=== PATIENT | female | born 1970 | race Caucasian/White ===

== ENCOUNTER 2016-12-27 16:48 | Emergency (ER) | payer BC ==
[~2016-12-27] VITALS: Ht 154.9 cm; Wt 129.4 kg
[~2016-12-27 16:48] MED LIST: ALBINS INH; ASPCH81X PO; DIPH25CA65 PO; FEXO1TAB49 PO; FLUT1INH7 PO; HYDC25 PO; LISI-725 PO; METF-384 PO; MONT1TAB3 PO; PRLSR20 PO
[2016-12-27 16:52] VITALS: TEMP 36.9; Ht 154.9 cm; Wt 129.4 kg
[2016-12-27] MEDS ORDERED: RANITIDINE HCL 50 MG/100 ML D5W IV STA (16:58)
[2016-12-27] MEDS ORDERED: DiphenhydrAMINE HCL 50 MG/ML VIAL IV STA (16:58)
[2016-12-27] MEDS ORDERED: METHYLPREDNISOLONE 125 MG VIAL IV STA (16:58)
[2016-12-27] MEDS ORDERED: SODIUM CHLORIDE 0.9% 1000ML 1,000 ML IV STA (16:58)
[2016-12-27] MEDS ORDERED: RACEPINEPHRINE 2.25% NEBU SOLN 0.5 ML VIAL INH STA (17:02)
--- NOTE | 2016-12-27 17:05 | EMERGENCY ROOM VISIT NOTE ---
History Report prepared by Portillo: Brandie Siegel Under the Supervision of: Dr. Paul Alcocer M.D. First contact with patient: 16:56 Chief Complaint: ALLERGIC REACTION Stated Complaint: STUNG BY YELLOW JACKET History of Present Illness The patient is a 46 year old female who presents to the Emergency Room with complaints of an allergic reaction that started prior to arrival. She reports she was stung on the back of her left arm by a yellow jacket at 1630 today. She rates her discomfort as a 5/10 in severity and states her breathing began to feel "tight" after being stung. Source of History: patient Onset: 1630 today Position: arm (left) Symptom Intensity: 5/10 Timing: other (persistent) Associated Symptoms: + SOB Review of Systems See HPI for pertinent positives & negatives. A total of 10 systems reviewed and were otherwise negative. Past Medical & Surgical Medical Problems: (1) Hypertension Family History Heart disease Hypertension Social History Smoking Status: Never Smoker Alcohol Use: none Drug Use: none Marital Status: Housing Status: lives with family Occupation Status: employed Current/Historical Medications Scheduled Albuterol 0.083% Soln (Ventolin 0.083% Soln *), 1 AMP INH Q4HR Aspirin (Aspirin Chewable), 81 MG PO DAILY Diphenhydramine Hcl (Benadryl Allergy), 1 CAP PO DIRECTED Epinephrine (Epipen), 0.3 MG IM UD Fexofenadine Hcl (Stephanie Allergy), 1 TAB PO DAILY Fluticasone Furoate-Vilanterol (Breo Ellipta 200-25 Mcg/INH), 1 PUFF PO DAILY Hydrochlorothiazide (Hctz *), 12.5 MG PO DAILY Lisinopril (Zestril), 20 MG PO DAILY Metformin Hcl (Glucophage), 1,000 MG PO DAILY Montelukast Sodium (Singulair), 10 MG PO HS Omeprazole (Prilosec), 20 MG PO DAILY Prednisone (Prednisone Tab), 0 PO DAILY Ranitidine Hcl (Zantac), 150 MG PO BID Allergies Coded Allergies: BEE STING (Verified Allergy, Unknown, 12/27/16) Physical Exam Vital Signs Date Time Temp Pulse Resp B/P (MAP) Pulse Ox O2 Delivery O2 Flow Rate FiO2 12/27/16 20:56 94 18 138/82 96 12/27/16 19:24 73 20 127/87 99 Room Air 12/27/16 19:17 80 18 95 Room Air 12/27/16 17:57 77 17 121/79 96 Room Air 12/27/16 17:38 76 12/27/16 17:17 95 Room Air 12/27/16 17:17 95 Room Air 12/27/16 16:52 36.9 90 20 190/99 96 Room Air Physical Exam GENERAL: Patient is a healthy-appearing well-nourished 46 year old female HEAD: Normocephalic atraumatic EYES: Ocular movements intact pupils equal and react to light OROPHARYNX mucous membranes are moist no exudates present no erythema or edema present NECK: Supple no nuchal rigidity CHEST: Good equal expansion LUNGS: Clear and equal to auscultation CARDIAC: Normal S1 and S2 ABDOMEN: Soft nontender no guarding BACK: No CVA tenderness SKIN: Hives present on the left arm and chest EXTREMITIES: No pain upon palpation normal muscle strength in all groups no clubbing cyanosis or edema NEURO: Patient is following commands is answering questions appropriately. Alert and oriented x3 Cranial Nerves 2-12 grossly intact Medical Decision & Procedures Medications Administered Medications (Trade) Dose Ordered Sig/Flynn Route Start Time Stop Time Status Last Admin Dose Admin Sodium Chloride 1,000 ml @ 999 mls/hr Q1H1M STAT IV 12/27/16 16:58 12/27/16 17:58 DC 12/27/16 17:09 999 MLS/HR Diphenhydramine HCl (Benadryl Inj) 50 mg NOW STAT IV 12/27/16 16:58 12/27/16 17:00 DC 12/27/16 17:10 50 MG Methylprednisolone Sodium Succinate (Solu-Medrol IV) 125 mg NOW STAT IV 12/27/16 16:58 12/27/16 17:00 DC 12/27/16 17:09 125 MG Ranitidine HCl (zANTac IV) 50 mg NOW STAT IV 12/27/16 16:58 12/27/16 17:00 DC 12/27/16 17:10 50 MG Racepinephrine (Raccemic Epinephrine 2.25% 0.5ML Neb) 0.5 ml NOW STAT INH 12/27/16 17:02 12/27/16 17:03 DC 12/27/16 17:10 0.5 ML Albuterol/ Ipratropium (Duoneb) 12 ml ONE STAT INH 12/27/16 18:51 12/27/16 18:52 DC 12/27/16 19:16 12 ML ED Course 1654: Past medical records reviewed. The patient was evaluated in room B5. A complete history and physical examination was performed. 1657: Zantac 50 mg IV, Solu-Medrol 125 mg IV, Benadryl 50 mg IV, NSS 1000 ml @ 999 mls/hr IV. 1701: Racepinephrine 0.5 ml INH. 1834: I reevaluated the patient. She is resting comfortably. 1850: DuoNeb 12 ml INH. 2020: I reevaluated the patient. She is feeling much better. I discussed her results and discharge instructions and she verbalized complete understanding and agreement. Medical Decision Prior records/ancillary studies reviewed. Triage Nursing notes reviewed. The patient's history was concerning for possible allergic reaction. Differential diagnosis: Etiologies such as allergic reaction, anaphylaxis, urticaria, Hammer-Juan syndrome, toxic epidermal necrolysis, erythema multiforme, cellulitis, as well as others were entertained. This is a 46-year-old female who presents emergency department after being stung by bee. The patient does not have any stridor or wheezing on examination however has hives throughout her body therefore an IV was established, the patient given normal saline bolus, Benadryl, Solu-Medrol, Zantac. She was also given an epi-breathing treatment. She was observed for a total of 4 hours in the emergency department. She was also given DuoNeb breathing treatments for her asthma. Repeat examination revealed much improvement the patient's symptoms. At this point the patient wished to be discharged home. I do believe that this is reasonable however I will write for EpiPen's for home as well as a prednisone taper. I recommended that the patient take Benadryl 50 mg every 6 hours and that she also takes Zantac. Patient was in agreement with the treatment plan. Medication Reconcilliation Current Medication List: was personally reviewed by me Blood Pressure Screening Patient's blood pressure: Normal blood pressure Blood pressure disposition: Did not require urgent referral Impression Primary Impression: Allergic reaction Scribe Attestation The scribe's documentation has been prepared under my direction and personally reviewed by me in its entirety. I confirm that the note above accurately reflects all work, treatment, procedures, and medical decision making performed by me. Departure Information Dispostion Home / Self-Care Prescriptions Epinephrine (EPIPEN) 0.3 Mg/0.3 Ml Inj 0.3 MG IM UD, #2 BOX Prov: Paul Alcocer MD 12/27/16 Ranitidine Hcl (ZANTAC) 150 Mg Tab 150 MG PO BID for 7 Days, #14 TAB Prov: Paul Alcocer MD 12/27/16 Prednisone (Prednisone Tab) 20 Mg Tab 0 PO DAILY, #7 TAB 2 TABS DAILY FOR 2 DAYS, THEN 1 TAB DAILY FOR 2 DAYS, THEN 1/2 TAB DAILY FOR 2 DAYS. Prov: Paul Alcocer MD 12/27/16 Referrals Chiara Vaca D.O. (PCP) Patient Instructions ED Allergic Reaction General Other, ED Allergic Reaction Local Other, First Aid Allergic React, My [facility] Additional Instructions Take 50 mg Benadryl every 6 hours Use inhaler twice every 6 hours You have been examined and treated today on an emergency basis only. This is not a substitute for, or an effort to provide, complete comprehensive medical care. It is impossible to recognize and treat all injuries or illnesses in a single emergency department visit. It is therefore important that you follow up closely with Dr Vaca. Call as soon as possible for an appointment. Thank you for your time and consideration. I look forward to speaking with you again soon. Please don't hesitate to call us if you have any questions. Problem Qualifiers Primary Impression: Allergic reaction Encounter type: initial encounter Qualified Codes: T78.40XA - Allergy, unspecified, initial encounter
[2016-12-27 17:17] VITALS: O2SAT 95
[2016-12-27] MEDS ORDERED: ALBUT/IPRATROP 3MG/0.5MG NEB 3 ML VIAL INH STA (18:51)
[2016-12-27 19:17] VITALS: PULSE 80; O2SAT 95
[2016-12-27] MEDS ORDERED: RANI150T3 PO (20:25)
[2016-12-27] MEDS ORDERED: PRED20TA2 PO (20:25)
[2016-12-27] MEDS ORDERED: EPP3/2 IM (20:28)
[2016-12-27 20:56] VITALS: BP 138/82; PULSE 94; O2SAT 96
[2016-12-28] MEDS ORDERED: ALBINS/ INH (15:42)
[2016-12-28] MEDS ORDERED: ASPI81TA28 PO (15:43)
[2016-12-28] MEDS ORDERED: DIPH25CA65 PO (15:44)
[2016-12-28] MEDS ORDERED: EPP3/2 IM (15:45)
[2016-12-28] MEDS ORDERED: HYDR12.55 PO (15:48)
[2016-12-28] MEDS ORDERED: ZNTT/150 PO (15:50)
== END 2016-12-27 21:08 | disposition home or self-care (01) ==
LOC: C.EDB 16:48
DX: T78.40XA Allergy, unspecified, initial encounter (principal); X58.XXXA Exposure to other specified factors, initial encounter; I10 Essential (primary) hypertension; J45.909 Unspecified asthma, uncomplicated; Z82.49 Family history of ischemic heart disease and other diseases of the circulatory system; Z79.82 Long term (current) use of aspirin; Z79.899 Other long term (current) drug therapy

== ENCOUNTER 2016-12-28 15:04 | Emergency (ER) | payer BC ==
[~2016-12-28] VITALS: Ht 154.9 cm; Wt 130.4 kg
[~2016-12-28 15:04] MED LIST changes: +EPP3/2 IM; +PRED20TA2 PO; +RANI150T3 PO
[2016-12-28 15:15] VITALS: TEMP 36.7; Ht 154.9 cm; Wt 130.4 kg
[2016-12-28] MEDS ORDERED: DiphenhydrAMINE HCL 50 MG/ML VIAL IV STA (15:37)
[2016-12-28] MEDS ORDERED: ALBUT/IPRATROP 3MG/0.5MG NEB 3 ML VIAL INH STA (15:37)
[2016-12-28] MEDS ORDERED: ALBINS/ INH (15:42)
[2016-12-28] MEDS ORDERED: ASPI81TA28 PO (15:43)
[2016-12-28] MEDS ORDERED: DIPH25CA65 PO (15:44)
[2016-12-28] MEDS ORDERED: EPP3/2 IM (15:45)
[2016-12-28] MEDS ORDERED: HYDR12.55 PO (15:48)
[2016-12-28] MEDS ORDERED: ZNTT/150 PO (15:50)
--- NOTE | 2016-12-28 16:20 | DIAGNOSTIC IMAGING REPORT ---
CHEST ONE VIEW PORTABLE CLINICAL HISTORY: Atypical chest pain COMPARISON STUDY: June 2007 FINDINGS: The cardiac and mediastinal contours are normal. There is no evidence of focal pulmonary consolidation. There is no evidence of failure. No pleural effusions are visualized.[ IMPRESSION: No active disease in the chest. Electronically signed by: Ruslan James M.D. 12/28/2016 4:19 PM Dictated Date/Time: 12/28/2016 4:18 PM
[2016-12-28 16:23] LABS: BASO ABS # 0.01 K/uL (0-0.2); COMPLETE YES; HEMATOCRIT 36.3 % (37-47); IG% 0.4 %; LYMPH % 4.6 %; MEAN CELL VOLUME 83.8 fL (80-100); MEAN CORPUSCULAR HGB CONC 32.2 g/dl (32-36); MONO % 5.6 %; NEUT % 89.4 %; PLATELET COUNT 350 K/uL (130-400); RED BLOOD COUNT 4.33 M/uL (4.2-5.4); WHITE BLOOD COUNT 21.78 K/uL (4.8-10.8)
[2016-12-28 16:52] LABS: BUN/CREATININE RATIO 10.9 (10-20); CALCIUM 9.6 mg/dl (8.5-10.1); POTASSIUM 4.3 mmol/L (3.5-5.1)
[2016-12-28 18:45] VITALS: BP 118/79; PULSE 88; O2SAT 97
--- NOTE | 2016-12-28 22:07 | EMERGENCY ROOM VISIT NOTE ---
History Report prepared by Portillo: Zander Lockwood Under the Supervision of: Dr. Hilario Jhaveri M.D. First contact with patient: 15:29 Chief Complaint: ALLERGIC REACTION Stated Complaint: HIVES, TROUBLE BREATHING, BEE STING History of Present Illness The patient is a 46 year old female who presents to the Emergency Room with complaints of a worsening allergic reaction beginning 24 hours ago. The patient states she was in the ED yesterday after being stung in the left arm by a yellow jacket. She reports she was given multiple medications and was discharged with prednisone. The patient notes she took her last dose of prednisone and Benadryl 7 hours ago. She states she is experiencing increased facial erythema, increased shortness of breath, throat tightness, and sweating. The patient reports her arms and legs are normal. She notes two hours ago, she experienced chest tightness that she believed was her asthma. The patient states she used her asthma medication, but it did not help. She denies fevers and vomiting. She reports she has a history of prior bee sting with allergy but not as bad as today. Source of History: patient Onset: 24 hours ago Position: other (global) Quality: other (Discharge) Timing: worsening Associated Symptoms: + chest pain (tightness similar to asthma exacerbations ), + SOB, No fevers, No vomiting Note: Associated symptoms: facial erythema and throat tightness Review of Systems See HPI for pertinent positives & negatives. A total of 10 systems reviewed and were otherwise negative. Past Medical & Surgical Medical Problems: (1) Asthma (2) Hypertension Family History Heart disease Hypertension Social History Smoking Status: Never Smoker Alcohol Use: none Drug Use: none Marital Status: Housing Status: lives with family Current/Historical Medications Scheduled Aspirin (Aspirin Ec), 81 MG PO DAILY Diphenhydramine Hcl (Benadryl Allergy), 25 MG PO Q6H Epinephrine (Epipen), 0.3 MG IM UD Fexofenadine Hcl (Stephanie Allergy), 180 MG PO DAILY Fluticasone Furoate-Vilanterol (Breo Ellipta 200-25 Mcg/INH), 1 PUFF PO DAILY Hydrochlorothiazide (Hydrochlorothiazide), 12.5 MG PO DAILY Lisinopril (Zestril), 20 MG PO DAILY Metformin Hcl (Glucophage), 1,000 MG PO DAILY Montelukast Sodium (Singulair), 10 MG PO HS Omeprazole (Prilosec), 20 MG PO DAILY Prednisone (Prednisone Tab), 0 PO DAILY Ranitidine (Zantac), 150 MG PO BID Scheduled PRN Albuterol Sulf (Proventil 0.083% 2.5MG/3ML), 2.5 MG INH Q4H PRN for SOB/Wheezing Allergies Coded Allergies: BEE STING (Verified Allergy, Unknown, 12/27/16) Physical Exam Vital Signs Date Time Temp Pulse Resp B/P (MAP) Pulse Ox O2 Delivery O2 Flow Rate FiO2 12/28/16 18:45 88 18 118/79 97 12/28/16 17:03 85 20 134/85 96 Room Air 12/28/16 16:33 87 12/28/16 16:06 Room Air 12/28/16 15:15 36.7 98 20 143/84 98 Room Air Physical Exam Constitutional: Vital signs reviewed. Eyes: Pupils are equal round reactive to light. Conjunctiva are noninjected. ENT: Pharynx is clear without erythema or exudate. Mucous membranes are moist. Neck supple without meningeal signs. Erythema and swelling to the face. No lip , tongue, or uvula swelling. Respiratory: Mild scattered wheezing, no stridor. Breath sounds are equal bilaterally. Cardiovascular: Regular rate and rhythm. No rubs or gallops. GI: Soft, nondistended and nontender. Bowel sounds are present. Musculoskeletal: No peripheral edema. No lower extremity tenderness. Left arm - no stinger present, mild erythema posteriorly. Integumentary: No cyanosis. No hives to the legs. Neurological: The patient is awake and alert. No focal deficits. Psychiatric: Normal affect. Medical Decision & Procedures ER Provider Diagnostic Interpretation: X-ray results as stated below per interpretation by me and the radiologist: CHEST ONE VIEW PORTABLE CLINICAL HISTORY: Atypical chest pain COMPARISON STUDY: June 2007 FINDINGS: The cardiac and mediastinal contours are normal. There is no evidence of focal pulmonary consolidation. There is no evidence of failure. No pleural effusions are visualized. IMPRESSION: No active disease in the chest. Electronically signed by: Ruslan James M.D. 12/28/2016 4:19 PM Dictated Date/Time: 12/28/2016 4:18 PM Laboratory Results 12/28/16 16:00 Red Blood Count 4.33, Mean Corpuscular Volume 83.8, Mean Corpuscular Hemoglobin 27.0, Mean Corpuscular Hemoglobin Concent 32.2, Mean Platelet Volume 11.0, Neutrophils (%) (Auto) 89.4, Lymphocytes (%) (Auto) 4.6, Monocytes (%) (Auto) 5.6, Eosinophils (%) (Auto) 0.0, Basophils (%) (Auto) 0.0, Neutrophils # (Auto) 19.48, Lymphocytes # (Auto) 1.00, Monocytes # (Auto) 1.21, Eosinophils # (Auto) 0.00, Basophils # (Auto) 0.01 12/28/16 16:00 Test 12/28/16 16:00 12/28/16 16:17 White Blood Count 21.78 K/uL (4.8-10.8) Red Blood Count 4.33 M/uL (4.2-5.4) Hemoglobin 11.7 g/dL (12.0-16.0) Hematocrit 36.3 % (37-47) Mean Corpuscular Volume 83.8 fL (80-100) Mean Corpuscular Hemoglobin 27.0 pg (25-34) Mean Corpuscular Hemoglobin Concent 32.2 g/dl (32-36) Platelet Count 350 K/uL (130-400) Mean Platelet Volume 11.0 fL (7.4-10.4) Neutrophils (%) (Auto) 89.4 % Lymphocytes (%) (Auto) 4.6 % Monocytes (%) (Auto) 5.6 % Eosinophils (%) (Auto) 0.0 % Basophils (%) (Auto) 0.0 % Neutrophils # (Auto) 19.48 K/uL (1.4-6.5) Lymphocytes # (Auto) 1.00 K/uL (1.2-3.4) Monocytes # (Auto) 1.21 K/uL (0.11-0.59) Eosinophils # (Auto) 0.00 K/uL (0-0.5) Basophils # (Auto) 0.01 K/uL (0-0.2) RDW Standard Deviation 43.8 fL (36.4-46.3) RDW Coefficient of Variation 14.3 % (11.5-14.5) Immature Granulocyte % (Auto) 0.4 % Immature Granulocyte # (Auto) 0.08 K/uL (0.00-0.02) Anion Gap 8.0 mmol/L (3-11) Est Creatinine Clear Calc Drug Dose 87.8 ml/min Estimated GFR () 77.2 Estimated GFR (Non- 66.6 BUN/Creatinine Ratio 10.9 (10-20) Calcium Level 9.6 mg/dl (8.5-10.1) Bedside Troponin I < 0.030 ng/ml (0-0.045) Laboratory results as reviewed by me. Medications Administered Medications (Trade) Dose Ordered Sig/Flynn Route Start Time Stop Time Status Last Admin Dose Admin Albuterol/ Ipratropium (Duoneb) 3 ml NOW STAT INH 12/28/16 15:37 12/28/16 15:51 DC 12/28/16 16:18 3 ML Diphenhydramine HCl (Benadryl Inj) 50 mg NOW STAT IV 12/28/16 15:37 12/28/16 15:51 DC 12/28/16 16:18 50 MG ECG Indication: other (chest tightness) Rate (beats per minute): 86 Rhythm: normal sinus Findings: no acute ischemic change, no ectopy ED Course 153: The patient was evaluated in room C07. A complete history and physical exam was performed. 153: Ordered Diphenhydramine HCl 50mg IV, Duoneb 3ml INH 1651: I reevaluated the patient. There is no wheezing on exam, and she denies current chest pressure. She is feeling better and only has the sensation of secretions in her throat. There is no swelling. 1814: Upon reevaluation, the patient appeared to have improvement of her symptoms. I discussed tonight's findings with her. She verbalized agreement of the treatment plan. The patient was discharged home. Medical Decision This is a 46-year-old female who presents with an allergic reaction. I did perform a limited focused review of portions of the patient's old chart on the electronic medical record. The patient was here yesterday for an allergic reaction from a yellow jacket. She was discharged with an epinephrine pen, Zantac, and prednisone. She was given Solu-Medrol, racemic epinephrine, and a duoneb. I did evaluate the patient as noted above. The patient presented yesterday with an acute allergic reaction. She is having rebound symptoms today. She also noted some chest discomfort which she describes as a tightness and similar to prior asthma exacerbation. She does have some wheezing on exam which I felt is likely triggered by this acute allergic reaction. IV access was established. The patient was placed on a continuous hospital monitor. I did treat her with a DuoNeb as well as 50 mg of Benadryl IV. I did order and personally review the patient's 12-lead EKG and chest x-ray as described above. Her twelve-lead EKG does not show any evidence of acute ischemia. A chest x- ray is unremarkable. I did order and review the patient's blood work as noted in the electronic medical record. White blood cell count is elevated but she was given Solu-Medrol yesterday and took prednisone today. She has had no fevers. There is no sign of infection at this time. I did reassess the patient several times. She had progressive improvement of her symptoms. She has no wheezing on reexamination and her chest tightness is resolved. The patient was advised to continue her prednisone and antihistamines as directed. She was advised follow with her doctor. She was discharged in good condition. Medication Reconcilliation Current Medication List: was personally reviewed by me Blood Pressure Screening Patient's blood pressure: Elevated blood pressure Blood pressure disposition: Referred to PCP Impression Primary Impression: Allergic reaction Additional Impression: Asthma exacerbation Scribe Attestation The scribe's documentation has been prepared under my direct and personally reviewed by me in its entirety. I confirm that the note above accurately reflects all work, treatment, procedures, and medical decision making performed by me. Departure Information Dispostion Home / Self-Care Referrals Chiara Vaca D.O. (PCP) Forms HOME CARE DOCUMENTATION FORM, IMPORTANT VISIT INFORMATION Patient Instructions Asthma - [facility], ED Allergic Reaction General Other, My [facility] Additional Instructions You have been examined and treated today on an emergency basis only. This is not a substitute for, or an effort to provide, complete comprehensive medical care. It is impossible to recognize and treat all injuries or illnesses in a single emergency department visit. It is therefore important that you follow up closely with your physician. Call as soon as possible for an appointment. Return for worsening symptoms or if you develop swelling to your throat or tongue or any other concerning symptoms. Problem Qualifiers Primary Impression: Allergic reaction Encounter type: initial encounter Qualified Codes: T78.40XA - Allergy, unspecified, initial encounter
== END 2016-12-28 18:46 | disposition home or self-care (01) ==
LOC: C.EDB 15:05 → C.EDC 18:46
DX: S40.862A Insect bite (nonvenomous) of left upper arm, initial encounter (principal); W57.XXXA Bitten or stung by nonvenomous insect and other nonvenomous arthropods, initial encounter; T63.441A Toxic effect of venom of bees, accidental (unintentional), initial encounter; J45.901 Unspecified asthma with (acute) exacerbation; I10 Essential (primary) hypertension; Z79.82 Long term (current) use of aspirin; Z79.84 Long term (current) use of oral hypoglycemic drugs

== ENCOUNTER 2019-07-10 07:58 | Observation (INO) ==
--- OUTSIDE RECORDS SUMMARY | 2019-07-10 08:02 | External Medical Summary | Continuity of Care Document ---
:1970 Author Name Glenn Hansen, Provider Address Unavailable Unavailable , Care Team Providers Name Role Phone Breanne Dickey PA-C Unavailable [email or web address] Cable DO Unavailable [email or web address], UNKNOWN Unavailable Unavailable Unavailable Unavailable Unavailable Problems Asthma (493.90) (J45.909) Allergies and Adverse Reactions No Known Drug Allergies (Allergy) Bee sting (Allergy) Medications Albuterol Sulfate (2.5 MG/3ML) 0.083% In halation Nebulization Solution; USE 1 UNIT DOSE IN NEBULIZER EVERY 4 HOURS NEEDED. KEZIA Dickey 3 ML P las Cont (60 Plas Quantity: 60 Conts) Refills: 5 Nebulizer/Tubing/Mouthpiece KIT; USE DIRECTED. KEZIA Andino Start: 28-Sep-2010 Quantity: 1 A. 1 EA Package Refills: 0 Procedures Procedures not documented Immunizations Immunizations not documented Plan of Treatment Planned Observations Planned Goals not documented Results No Known Results Results not documented
[2019-07-10] MEDS ORDERED: NITROGLYCERIN SL 0.4 MG/TAB TAB SL STA (08:18)
[2019-07-10 08:25] LABS: Basophils # (auto) 0.02 K/uL (0-0.2); Basophils % (auto) 0.2 %; Eosinophils # (auto) 0.19 K/uL (0-0.5); Eosinophils % (auto) 1.9 %; Hematocrit (blood only) 38.4 % (37-47); Hemoglobin 12.3 g/dL (12.0-16.0); Immature Granulocytes # (auto) 0.03 K/uL (0.00-0.02); Immature Granulocytes % (auto) 0.3 %; Lymphocytes # (auto) 1.79 K/uL (1.2-3.4); Lymphocytes % (auto) 17.5 %; Mean Corpuscular Volume 84.4 fL (80-100); Mean Platelet Volume 11.5 fL (7.4-10.4); Monocytes # (auto) 0.73 K/uL (0.11-0.59); Monocytes % (auto) 7.1 %; Neutrophils # (auto) 7.47 K/uL (1.4-6.5); Platelet Count 327 K/uL (130-400); RDW Coefficient of Variation 14.4 % (11.5-14.5); RDW Standard Deviation 43.9 fL (36.4-46.3); Red Blood Count 4.55 M/uL (4.2-5.4); White Blood Count 10.23 K/uL (4.8-10.8)
--- NOTE | 2019-07-10 08:26 | Emergency Department Note ---
History of Present Illness General Chief Complaint: Chest Pain Source: patient Mode of arrival: ambulatory Limitations: no limitations History of Present Illness Provider Complaint: chest pain Onset (ago): hour(s) 5 Time: 03:30 Duration: constant and progressively worsening Onset: during rest and awoke with symptoms Pain Location: left chest Pain Radiation: back Severity: moderate Maximum Pain Intensity: 5 Current Pain Intensity: 5 Quality: + tightness Relieved By: + nothing Exacerbated By: + exertion Treatments prior to arrival: aspirin and nitroglycerin This 49-year-old female patient presents emergency department today via ambulance with complaints of left chest pain. The patient states the pain begins in her left armpit and radiates around to her chest and back to her back. She states the pain began last evening and was very minimal at first, around 8pm. She woke at 330 with back pain, fell back to sleep for an hour, then awoke at 430 with significantly worsening pain in the left armpit radiating into the chest. Walking and movement makes the pain worse. She states her breathing feels heavy and short. She denies any history of similar pain. She denies any recent illness or injury. She denies any abdominal pain, nausea, vomiting, fever, numbness, tingling, weakness, cough, or other associated symptoms. Patient rates her pain a 5/10. She had aspirin and nitroglycerin while in route to the ED without relief. Home Medications Home Medications Medication Instructions Recorded Confirmed Type albuterol sulfate 2.5 mg INHALATION QID PRN 07/10/19 07/10/19 History albuterol sulfate [Proventil HFA] 1 inh INHALATION QID PRN 07/10/19 07/10/19 History aspirin 81 mg PO DAILY 07/10/19 07/10/19 History famotidine [Pepcid] 20 mg PO HS 07/10/19 07/10/19 History fexofenadine 180 mg PO DAILY 07/10/19 07/10/19 History hydrochlorothiazide 12.5 mg PO DAILY 07/10/19 07/10/19 History lisinopril 20 mg PO DAILY 07/10/19 07/10/19 History metformin 500 mg PO BID 07/10/19 07/10/19 History montelukast 10 mg PO DAILY 07/10/19 07/10/19 History omalizumab [Xolair] 150 mg SUBCUT UD 07/10/19 07/10/19 History omeprazole 40 mg PO DAILY 07/10/19 07/10/19 History Allergies Allergy/AdvReac Type Severity Reaction Status Date / Time bee venom protein (honey bee) Allergy Unknown Verified 07/10/19 08:34 Past Med/Surg History Medical History Asthma (Chronic) GERD (gastroesophageal reflux disease) Hypertension (Chronic) Surgical History (Updated 07/10/19 @ 10:36 by Valerie Avalos PA-C) History of surgery on wrist Family History (Updated 07/10/19 @ 10:37 by Valerie Avalos PA-C) Father Myocardial infarction age 40s-50 multiple stents Coronary heart disease ETOH abuse Mother Myocardial infarction, Onset Age: 70 Kidney disease on HD Pulmonary embolism Stroke Social History Preferred Language: Irish Communication Ability: Effective 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 Beliefs That Will Affect Care: None Current Living Situation: Spouse Other Information That Helps Us Care for You: No Feels Safe at Home: Yes Safety Concerns: Feels Safe At This Time Smoking Status: Never smoker Do You Dip or Chew Tobacco: No ; Second Hand Exposure: No ; Tobacco Cessation Education Requested by Patient: No Hx Alcohol Use: No Hx Substance Use: No Review of Systems A total of 10 systems reviewed and were otherwise negative Physical Exam Vital Signs Vital Signs - 24 hr 07/10/19 08:03 07/10/19 08:05 07/10/19 08:20 Temperature 36.7 C Temperature Source Oral Pulse Rate 86 93 H Pulse Rate from SpO2 Sensor 93 H Pulse Rhythm Regular Pulse Strength Normal Respiratory Rate 19 19 Respiratory Effort / Characteristics Non-Labored Spontaneous Respiratory Depth Normal Blood Pressure 133/78 133/78 Blood Pressure Mean 96 82 Blood Pressure Position Lying Pulse Oximetry 97 96 95 Oxygen Delivery Method Room Air Room Air Sepsis Recent Fever Within 48 Hours No Sepsis New/Unexplained Change in Mental Status No Sepsis Action Taken by Nursing No Action Required 07/10/19 08:24 07/10/19 08:30 07/10/19 09:00 Temperature Temperature Source Pulse Rate 87 95 H 80 Pulse Rate from SpO2 Sensor 88 94 H 80 Pulse Rhythm Pulse Strength Respiratory Rate 19 23 18 Respiratory Effort / Characteristics Respiratory Depth Blood Pressure 127/97 116/68 115/69 Blood Pressure Mean 105 88 84 Blood Pressure Position Pulse Oximetry 97 95 96 Oxygen Delivery Method Sepsis Recent Fever Within 48 Hours Sepsis New/Unexplained Change in Mental Status Sepsis Action Taken by Nursing 07/10/19 09:31 07/10/19 10:01 Temperature Temperature Source Pulse Rate 86 92 H Pulse Rate from SpO2 Sensor 84 94 H Pulse Rhythm Pulse Strength Respiratory Rate 16 22 Respiratory Effort / Characteristics Respiratory Depth Blood Pressure 132/84 136/98 Blood Pressure Mean 120 115 Blood Pressure Position Pulse Oximetry 97 98 Oxygen Delivery Method Sepsis Recent Fever Within 48 Hours Sepsis New/Unexplained Change in Mental Status Sepsis Action Taken by Nursing VITALS: Vitals are noted on the nurse's note and reviewed by myself. Vital signs stable. GENERAL: This is a 49-year-old obese white female, in no acute distress, nondiaphoretic, well-developed well-nourished. SKIN: The skin was without rashes, erythema, edema, or bruising. There is no tenting of the skin. Capillary refill less than 2 seconds. HEAD: Normocephalic atraumatic. EARS: External auditory canals clear, tympanic membranes pearly crow without erythema or effusion bilaterally NECK: Supple without nuchal rigidity. No lymphadenopathy. No thyromegaly. Cervical spine is nontender. No JVD. HEART: Regular rate and rhythm without murmurs gallops or rubs. LUNGS: Clear to auscultation bilaterally without wheezes, rales or rhonchi. No retractions or accessory muscle use. ABDOMEN: Positive bowel sounds x 4. Soft, nontender, without masses or organomegaly. Petty sign negative. No guarding or rebound tenderness. MUSCULOSKELETAL: No muscle atrophy, erythema, or edema noted. Full range of motion without joint tenderness in all extremities. No tenderness to palpation. Strength 5/5 throughout. NEURO: Patient was alert and oriented to person place and time. No focal neurological deficits. Course Course The patient was seen and evaluated as above. Pt. placed on continuous director food and beverage which showed a normal sinus rhythm at a rate of 86. I discussed case with my attending physician. IV access obtained, labs drawn. Patient medicated with IV fluids and sublingual nitroglycerin. Imaging performed and reviewed by myself and radiologist as noted. Labs reviewed by myself. I discussed the findings with the patient at bedside. I discussed the case with Valerie Avalos PA-C with [facility]. She did agree to see and evlaluate the patient for admission. Please see hospitalist dictation regarding ongoing management and care of this patient. Administered Medications Discontinued Medications Sodium Chloride (Nss 1000ml) 1,000 mls @ 999 mls/hr IV .[id number] SEAN Stop: 07/10/19 09:30 Last Infusion: 07/10/19 09:26 Dose: 0 mls/hr Documented by: [id number] Admin: 07/10/19 08:25 Dose: 999 mls/hr Documented by: [id number] Nitroglycerin (Nitrostat) 0.4 mg SL NOW STA Stop: 07/10/19 08:19 Last Admin: 07/10/19 08:23 Dose: 0.4 mg Documented by: [id number] Medical Decision Making Differential Diagnosis + fracture of rib, + pneumothorax, + stable angina, + unstable angina pectoris, + atypical chest pain, + st elevation myocardial infarction, + costochondritis, + chest pain, + biliary colic, + cardiac ischemia, + myocarditis, + pericarditis, + costochondritis, + pleurisy, + aortic dissection, + pulmonary embolism, + pneumonia, + musculoskeletal, + infections, + cholecystitis, + pancreatitis and + esophageal rupture Medical Records Attestation: I reviewed the patient's medical records. Home Medications Current Medication List: was personally reviewed by me Laboratory Data Attestation: I reviewed the patient's lab results. Lab results narrative: No leukocytosis, anemia, thrombocytopenia. Renal, hepatic function, and electrolytes without significant abnormality. Troponin negative. Coags normal. lipase 159 Result diagrams: 07/10/19 07:30 07/10/19 07:30 Labs: Lab Results 07/10/19 07/10/19 07/10/19 Range/Units 07:30 07:30 07:30 WBC 10.23 (4.8-10.8) K/uL RBC 4.55 (4.2-5.4) M/uL Hgb 12.3 (12.0-16.0) g/dL Hct 38.4 (37-47) % MCV 84.4 (80-100) fL MCH 27.0 (25-34) pg MCHC 32.0 (32-36) g/dL RDW Std Deviation 43.9 (36.4-46.3) fL RDW Coeff of Nay 14.4 (11.5-14.5) % Plt Count 327 (130-400) K/uL MPV 11.5 H (7.4-10.4) fL Immature Gran % (Auto) 0.3 % Neut % (Auto) 73.0 % Lymph % (Auto) 17.5 % Dougherty % (Auto) 7.1 % Eos % (Auto) 1.9 % Baso % (Auto) 0.2 % Immature Gran # (Auto) 0.03 H (0.00-0.02) K/uL Neut # (Auto) 7.47 H (1.4-6.5) K/uL Lymph # (Auto) 1.79 (1.2-3.4) K/uL Dougherty # (Auto) 0.73 H (0.11-0.59) K/uL Eos # (Auto) 0.19 (0-0.5) K/uL Baso # (Auto) 0.02 (0-0.2) K/uL PT 10.3 (9.0-12.0) Seconds INR 1.0 (0.9-1.1) APTT 24.4 (21.0-31.0) Seconds PTT Ratio 0.9 D-Dimer (0-500) ug/L FEU Sodium 137 (136-145) mmol/L Potassium 4.2 (3.5-5.1) mmol/L Chloride 103 (98-107) mmol/L Carbon Dioxide 29 (21-32) mmol/L Anion Gap 5.0 (3-11) BUN 11 (7-18) mg/dl Creatinine 0.73 (0.6-1.2) mg/dl Est Cr Clr Drug Dosing 118.3 ml/min Est GFR ( Amer) 110.5 Est GFR (Non-Af Amer) 95.4 BUN/Creatinine Ratio 15.7 (10-20) Glucose 110 H (70-99) mg/dl Calcium 9.7 (8.5-10.1) mg/dl Total Bilirubin 0.2 (0.2-1) mg/dl AST 8 L (15-37) U/L ALT 20 (12-78) U/L Alkaline Phosphatase 86 (45-117) U/L Troponin I < 0.015 (0-0.045) ng/ml Total Protein 7.8 (6.4-8.2) gm/dl Albumin 3.2 L (3.4-5.0) gm/dl Globulin 4.6 H (2.5-4.0) gm/dl Albumin/Globulin Ratio 0.7 L (0.9-2) Lipase 159 (73-393) U/L 07/10/19 Range/Units 07:30 WBC (4.8-10.8) K/uL RBC (4.2-5.4) M/uL Hgb (12.0-16.0) g/dL Hct (37-47) % MCV (80-100) fL MCH (25-34) pg MCHC (32-36) g/dL RDW Std Deviation (36.4-46.3) fL RDW Coeff of Nay (11.5-14.5) % Plt Count (130-400) K/uL MPV (7.4-10.4) fL Immature Gran % (Auto) % Neut % (Auto) % Lymph % (Auto) % Dougherty % (Auto) % Eos % (Auto) % Baso % (Auto) % Immature Gran # (Auto) (0.00-0.02) K/uL Neut # (Auto) (1.4-6.5) K/uL Lymph # (Auto) (1.2-3.4) K/uL Dougherty # (Auto) (0.11-0.59) K/uL Eos # (Auto) (0-0.5) K/uL Baso # (Auto) (0-0.2) K/uL PT (9.0-12.0) Seconds INR (0.9-1.1) APTT (21.0-31.0) Seconds PTT Ratio D-Dimer 360 (0-500) ug/L FEU Sodium (136-145) mmol/L Potassium (3.5-5.1) mmol/L Chloride (98-107) mmol/L Carbon Dioxide (21-32) mmol/L Anion Gap (3-11) BUN (7-18) mg/dl Creatinine (0.6-1.2) mg/dl Est Cr Clr Drug Dosing ml/min Est GFR ( Amer) Est GFR (Non-Af Amer) BUN/Creatinine Ratio (10-20) Glucose (70-99) mg/dl Calcium (8.5-10.1) mg/dl Total Bilirubin (0.2-1) mg/dl AST (15-37) U/L ALT (12-78) U/L Alkaline Phosphatase (45-117) U/L Troponin I (0-0.045) ng/ml Total Protein (6.4-8.2) gm/dl Albumin (3.4-5.0) gm/dl Globulin (2.5-4.0) gm/dl Albumin/Globulin Ratio (0.9-2) Lipase (73-393) U/L Imaging Data Chest x-ray: Radiologist's impression: XR chest 1V portable CLINICAL HISTORY: Atypical chest pain COMPARISON STUDY: 08/27/2016 FINDINGS: The cardiac and mediastinal contours are normal. There is no evidence of focal pulmonary consolidation. There is no evidence of failure. No pleural effusions are visualized.[No pneumothorax is visualized. There is a 7 mm left apical nodule versus summation. IMPRESSION: 1. 7 mm left apical nodule versus summation 2. No evidence of failure. No evidence of focal pulmonary consolidation ACT 112: Negative or not required by law. Electronically signed by: Ruslan James M.D. 07/10/2019 8:52 AM ECG Data Indication: chest pain Rate (beats per minute): 89 Rhythm: normal sinus Findings: no ST depression, no T-wave inversion, no ST elevation, no acute ischemic change and no ectopy Comparison ECG Date: from (12/29/2016) Change: no significant change Blood Pressure Blood Pressure Findings: Elevated blood pressure Blood Pressure Disposition: elevated BP felt to be situational MDM Narrative This 49-year-old female patient presents emergency department today for za luation of chest pain. Pain began last evening. Heart score is 4. Initial labs unrevealing with negative Troponin. EKG without acute ischemic changes. Pt's pain did not respond to Nitro. She was given 324 ASA and 1 dose of Nitro [employer] with second dose of Nitro upon arrival. She was offered morphine when the nitro did not relieve her pain and declined. Pt. was not tachycardic, hypoxic, or tachypnic. Chest X-ray with 7mm left apical nodule vs. summation. Given her history and risk factors, pt. will be admitted to the hospitalist service for further evaluation and management of her symptoms. Please see hospitalist dictation regarding ongoing management and care. The chart was completed utilizing [employer] voice recognition software. Grammatical errors, random word insertions, pronoun errors, and incomplete sentences are an occasional consequence of this system due to software limitatio ns, ambient noise, and hardware issues. Any formal questions or concerns about the content, text, or information contained within the body of this dictation should be directly addressed to the provider for clarification. Impression & Plan Chest pain, Asthma, Hypertension Discharge Plan Visit Data Chief Complaint: Chest Pain ED Provider: Carlie Wolff ED Midlevel Provider: Anai Corona Discharge Problem: Chest pain, Asthma, Hypertension Patient Disposition: Admitted As Inpatient Condition: Good Discharge Instructions Interventions: ED Discharge Assessment Last Done: 07/10/19 10:29
[2019-07-10] MEDS ORDERED: SODIUM CHLORIDE 0.9% 1000ML 1,000 ML IV SCH (08:30)
[2019-07-10 08:33] LABS: Alanine Aminotransferase 20 U/L (12-78); Albumin Level 3.2 gm/dl (3.4-5.0); Aspartate Aminotransferase 8 U/L (15-37); BUN Creatinine Ratio 15.7 (10-20); Blood Urea Nitrogen 11 mg/dl (7-18); Calcium 9.7 mg/dl (8.5-10.1); Carbon Dioxide 29 mmol/L (21-32); Chloride 103 mmol/L (98-107); Creatinine Clr Calc Pharmacy 118.3 ml/min; Est GFR (African American) 110.5; Est GFR (Non-African American) 95.4; Glucose 110 mg/dl (70-99); Lipase 159 U/L (73-393); Potassium 4.2 mmol/L (3.5-5.1); Sodium 137 mmol/L (136-145)
[2019-07-10 08:38] LABS: Albumin Globulin Ratio 0.7 (0.9-2); Alkaline Phosphatase 86 U/L (45-117); Bilirubin,Total 0.2 mg/dl (0.2-1); Globulin 4.6 gm/dl (2.5-4.0); Total Protein 7.8 gm/dl (6.4-8.2); Troponin I < 0.015 ng/ml (0-0.045)
--- NOTE | 2019-07-10 08:53 | XRay Report ---
XR chest 1V portable CLINICAL HISTORY: Atypical chest pain COMPARISON STUDY: 08/27/2016 FINDINGS: The cardiac and mediastinal contours are normal. There is no evidence of focal pulmonary co nsolidation. There is no evidence of failure. No pleural effusions are visualized.[No pneumothorax is visualized. There is a 7 mm left apical nodule versus summation. IMPRESSION: 1. 7 mm left apical nodule versus summation 2. No evidence of failure. No evidence of focal pulmonary consolidation ACT 112: Negative or not required by law. Electronically signed by: Ruslan James M.D. 07/10/2019 8:52 AM
[2019-07-10 08:56] LABS: Partial Thromboplastin Ratio 0.9; Partial Thromboplastin Time 24.4 Seconds (21.0-31.0); Prothrombin Time 10.3 Seconds (9.0-12.0)
[2019-07-10] MEDS ORDERED: KETOROLAC 30 MG/ML VIAL IV ONE (10:30)
[2019-07-10] MEDS ORDERED: ALBUTEROL 0.083% NEBU SOLN 3 ML VIAL NEB STA (10:31)
[2019-07-10 10:32] LABS: D Dimer 360 ug/L FEU (0-500)
--- NOTE | 2019-07-10 10:36 | History & Physical Report ---
Date of Service July 10, 2019 Assessment & Plan (1) Chest pain: This is a 49-year-old female who has significant past medical history of HTN, diabetes mellitus, asthma, GERD, allergic rhinitis, morbid obesity, NIRMALA on 2 L at bedtime who presents to ED secondary to left-sided chest pain times several hours. In ED patient remained hemodynamically stable. Her lab work was generally unremarkable including CBC, CMP, troponin, lipase. D-dimer was ordered which was also negative. Chest x-ray revealed 7 mm TONIO apical nodule for summation. She received nitro 0.4 mg x 1 without relief. Pt with risk factors including HTN, T2DM, NIRMALA, Obesity, +FH in Father who had CAD with stents in his 40s/50s. CP is not reproducible but worse with inspiration sx likely attributed to costochondritis, MSK, pleurisy but given above must rule out ACS admit to PCU cycle trop x 3 repeat EKG obtain echocardiogram (had normal nuc stress test 08/2018) toradol 30mg x 1 now and q6h prn pain if cardiac work up negative likely okay to discharge tomorrow on anti inflammatories (2) T2DM (type 2 diabetes mellitus): last a1c 6.6 on 05/11/19 hold metformin insulin sliding scale (3) Hypertension: controlled on HCTZ and lisinopril (4) Abnormal CXR: CXR reveals 7mm TONIO apical nodule vs summation last Chest CT reviewed in 09/2015 revealed a 5mm left lower lobe nodule would recommend routine CT as outpt (5) GERD (gastroesophageal reflux disease): continue PPI/H2 sajan sx do not sound GI in origin does follow with [facility] recently had NM GES negative; had HIDA in 2018 which was WNL as well (6) NIRMALA (obstructive sleep apnea): continue 2L at HS (7) Asthma: no acute exacerbation continue prn albuterol she receives SQ inj with xolair q 2 weeks (8) Morbidly obese: encourage lifestyle modifications BMI 55.7 (9) DVT prophylaxis: SQ Heparin Disposition: admit to tele Follow up: PCP Dr. Medrano upon discharge Pt was seen and examined in collaboration with Dr. Mitchell, please see addendum History of Present Illness Chief Complaint: Left-sided chest pain times several hours. Primary Care Provider: Chiara Medrano, This is a 49-year-old female who has significant past medical history of HTN, diabetes mellitus, asthma, GERD, allergic rhinitis, morbid obesity, NIRMALA on 2 L at bedtime who presents to ED secondary to left-sided chest pain times several hours. She elicits that initially she developed substernal chest pain around 8 PM last evening which feels similar to her GERD. Symptoms resolved on their own. She was abruptly woken at approximately 3-3 30 this morning with left- sided upper back pain that radiated around to left axilla and left chest wall. Pain was constant, made worse with movement and deep inspiration but improved whenever she rolled on her side. She was able to fall back asleep when she woke up at approximately 5 AM with again severe pain. She got up and slept in recliner and was unable to get comfortable and therefore called EMS. She has never had any pain similar to this in the past. She describes pain as constant, "squeezing like a muscle spasm," 5/10, made worse with position and deep inspiration, improved with rest and shallow inspiration. In route she got ASA 324 and nitro x2 with no relief. She complained of associated shortness of breath and wheezing. She did use her nebulizer x2 yesterday secondary to wheezing. She complains of rhinorrhea, postnasal drip, cough for seen in the morning to clear postnasal drip then this resolves. She denies any recent URI or L RTI, fever, chills, sweats, lightheadedness, dizziness, syncope, palpitations, hemoptysis, nausea, vomiting, abdominal pain, change in bowel or urinary habits. She denies any recent travel, but has been more sedentary secondary to current pandemic. She denies any exposure to known COVID-19 contacts and has been taking proper precautions. Appetite has been normal. In ED patient remained hemodynamically stable. Her lab work was generally unremarkable including CBC, CMP, troponin, lipase. D-dimer was ordered which was also negative. Chest x-ray revealed 7 mm TONIO apical nodule for summation. She received nitro 0.4 mg x 1 without relief. Allergies Allergy/AdvReac Type Severity Reaction Status Date / Time bee venom protein (honey bee) Allergy Unknown Verified 07/10/19 08:34 Home Medications Home Medications Medication Instructions Recorded Confirmed Type albuterol sulfate 2.5 mg INHALATION QID PRN 07/10/19 07/10/19 History albuterol sulfate [Proventil HFA] 1 inh INHALATION QID PRN 07/10/19 07/10/19 History aspirin 81 mg PO DAILY 07/10/19 07/10/19 History famotidine [Pepcid] 20 mg PO HS 07/10/19 07/10/19 History fexofenadine 180 mg PO DAILY 07/10/19 07/10/19 History hydrochlorothiazide 12.5 mg PO DAILY 07/10/19 07/10/19 History lisinopril 20 mg PO DAILY 07/10/19 07/10/19 History metformin 500 mg PO BID 07/10/19 07/10/19 History montelukast 10 mg PO DAILY 07/10/19 07/10/19 History omalizumab [Xolair] 150 mg SUBCUT UD 07/10/19 07/10/19 History omeprazole 40 mg PO DAILY 07/10/19 07/10/19 History Past Med/Surg History Medical History Asthma (Chronic) GERD (gastroesophageal reflux disease) Hypertension (Chronic) Morbidly obese NIRMALA (obstructive sleep apnea) T2DM (type 2 diabetes mellitus) Surgical History (Updated 07/10/19 @ 10:36 by Valerie Avalos PA-C) History of surgery on wrist Family History Father Myocardial infarction age 40s-50 multiple stents Coronary heart disease ETOH abuse Mother Myocardial infarction, Onset Age: 70 Kidney disease on HD Pulmonary embolism Stroke Social History Preferred Language: [place] Communication Ability: Effective Charging Manipulator Required: No Beliefs That Will Affect Care: None Current Living Situation: Spouse Other Information That Helps Us Care for You: No Feels Safe at Home: Yes Safety Concerns: Feels Safe At This Time Smoking Status: Never smoker Do You Dip or Chew Tobacco: No ; Second Hand Exposure: No ; Tobacco Cessation Education Requested by Patient: No Hx Alcohol Use: No Hx Substance Use: No Review of Systems Review of Systems: All systems reviewed & are unremarkable except as noted in HPI & below Physical Exam Physical Exam: Constitutional: WD/WN, F, morbidly obese, vitals as above, NAD, sitting up in bed, pleasant, dyspneic with conversation Head: Normocephalic, Atraumatic Eyes: PERRL, conjunctivae normal, anicteric sclerae ENMT: external ear and nose normal, oropharynx normal Neck: trachea midline, no thyromegaly normal visual inspection Respiratory: normal respiratory effort, + pain with deep inspiration, lungs clear to auscultation, no wheeze, rales, rhonchi. Normal insp/exp effort, no accessory muscle use Cardiovascular: RRR, no murmur, no edema Vessels: no JVD or carotid bruit Chest: normal inspection of chest Abdomen: normal bowel sounds, soft, nontender, no hepatosplenomegaly Musculoskeletal: no cyanosis or clubbing, extremities motor strength 5/5 + pain to palpation L paraspinal musculature in cervical region Skin: no rashes, warm and dry normal turgor Neurologic: PERRL, EOMI, accommodation nl, no face palsy, no dysarthria CN's II-XI intact bilaterally and moves all extremities Psychiatric: A+Ox3, euthymic affect Lymphatic: no cervical or axillary lymphadenopathy : deferred Results & Data Results & Data ([facility]) Vital Signs (Past 12 Hours) Vital Signs Temp Pulse Resp BP Pulse Ox 07/10/19 10:01 92 H 22 136/98 98 07/10/19 09:31 86 16 132/84 97 07/10/19 09:00 80 18 115/69 96 07/10/19 08:30 95 H 23 116/68 95 07/10/19 08:24 87 19 127/97 97 07/10/19 08:20 95 07/10/19 08:05 93 H 19 133/78 96 07/10/19 08:03 36.7 C 86 19 133/78 97 Laboratory Results Short CBC 07/10/19 Range/Units 07:30 WBC 10.23 (4.8-10.8) K/uL Hgb 12.3 (12.0-16.0) g/dL Hct 38.4 (37-47) % Plt Count 327 (130-400) K/uL BMP 07/10/19 07:30 Sodium 137 Potassium 4.2 Chloride 103 Carbon Dioxide 29 BUN 11 Creatinine 0.73 Glucose 110 H Calcium 9.7 Cardiac Enzymes 07/10/19 Range/Units 07:30 Troponin I < 0.015 (0-0.045) ng/ml Liver Function 07/10/19 Range/Units 07:30 Total Bilirubin 0.2 (0.2-1) mg/dl AST 8 L (15-37) U/L ALT 20 (12-78) U/L Alkaline Phosphatase 86 (45-117) U/L Albumin 3.2 L (3.4-5.0) gm/dl Diagnostic Findings CXR: IMPRESSION: 1. 7 mm left apical nodule versus summation 2. No evidence of failure. No evidence of focal pulmonary consolidation Medications Administered Discontinued Medications Sodium Chloride (Nss 1000ml) 1,000 mls @ 999 mls/hr IV .Q1H1M SEAN Stop: 07/10/19 09:30 Last Infusion: 07/10/19 09:26 Dose: 0 mls/hr Documented by: [id number] Admin: 07/10/19 08:25 Dose: 999 mls/hr Documented by: [id number] Nitroglycerin (Nitrostat) 0.4 mg SL NOW STA Stop: 07/10/19 08:19 Last Admin: 07/10/19 08:23 Dose: 0.4 mg Documented by: [id number] ECG Rate (beats per minute): 89 Rhythm: normal sinus Code Status & VTE Plan Code Status Full Code Supervising Physician Co-Signing Physician Notes ATTENDING ADDENDUM : Pt seen and examined, care co ordinated with Valerie Lawrence PA-C this is a 49 yo female presented with chest tightness, SOB , sharp chest pain for last 12-18 hrs symptoms has resolved now no SOB , or OVALLSE no cough or fever or chills no prior hx of CAD PHYSICAL EXAM : GENERAL: No sign of distress, HEENT: Sclera nonicteric, pink-purple bilateral equal reactive to light extraocular muscle intact Normal oral mucosa, neck: No JVD, no thyromegaly, trachea midline Lungs: Clear to auscultate, no wheeze or rales Cardiovascular: Regular S1 and S2, no murmur or gallop, no JVD, no lower extremity edema Abdomen: Soft, nontender, bowel sounds active, no hepatosplenomegaly Extremities: No rash or deformity, normal joint, Neuro: No focal neurological deficit, no dysarthria, no facial droop Psych: Alert awake oriented x3: Euthymic Skin: No rash LYMPH NODES: No cervical lymphadenopathy CHEST PAIN ; atypical for angina sharp reproducible chest wall pain -noted on palpaiton no SOB family hx of premature CAD -father had multiple Coronary stent at age 40's observe in tele overnight serial cardiac markers and resting ECHO for cardiac work up plan to Dc home tomorrow if Priliminary work up negative will benefit with out patient cardiac stress test Tabatha Mitchell MD (1) Chest pain Chest pain type: unspecified Qualified Code(s): R07.9 - Chest pain, unspecified (2) Hypertension Hypertension type: unspecified Qualified Code(s): I10 - Essential (primary) hypertension (3) Asthma Asthma complication type: uncomplicated Asthma persistence: intermittent Asthma severity: mild Qualified Code(s): J45.20 - Mild intermittent asthma, uncomplicated
[2019-07-10] MEDS ORDERED: ONDANSETRON INJ 2 MG/ML 2 ML VIAL IV PRN (10:42)
[2019-07-10] MEDS ORDERED: ACETAMINOPHEN 325 MG TAB PO PRN (10:42)
[2019-07-10] MEDS ORDERED: GLUCAGON FOR INJ 1 MG VIAL SQ PRN (10:42)
[2019-07-10] MEDS ORDERED: GLUCOSE 40% GEL 15 GM TUBE PO PRN (10:42)
[2019-07-10] MEDS ORDERED: GLUCOSE 10 TABS/TUBE PO PRN (10:42)
[2019-07-10] MEDS ORDERED: POLYETHYLENE (MIRALAX) 17 GM PACK PO PRN (10:42)
[2019-07-10] MEDS ORDERED: MAGNESIUM HYDROXIDE SUSP 30 ML UDC PO PRN (10:42)
[2019-07-10] MEDS ORDERED: CARBOHYDRATES FOR HYPOGLYCEMIA PO PRN (10:42)
[2019-07-10] MEDS ORDERED: NITROGLYCERIN SL 0.4 MG/TAB TAB SL PRN (10:42)
[2019-07-10] MEDS ORDERED: DEXTROSE 50% 50 ML SYRINGE IV PRN (10:42)
[2019-07-10] MEDS ORDERED: ALUMINUM/MAGNESIUM SUSP 30 ML UDC PO PRN (10:42)
[2019-07-10] MEDS: INSULIN ASPART 100 UNITS/ML 3 ML PEN SC SCH ×3 (12:07→20:59)
[2019-07-10] MEDS: HEPARIN SOD 5,000 UNIT/0.5 ML VIAL SQ SCH ×2 (13:55→20:59)
[2019-07-10] MEDS ORDERED: KETOROLAC 30 MG/ML VIAL IV PRN (17:00)
[2019-07-10] MEDS: ALBUTEROL 0.083% NEBU SOLN 3 ML VIAL NEB PRN (18:10)
[2019-07-10] MEDS ORDERED: FAMOTIDINE 20 MG TAB PO SCH (21:00)
[2019-07-11] MEDS: ALBUTEROL 0.083% NEBU SOLN 3 ML VIAL NEB PRN ×3 (01:04→13:20)
[2019-07-11 01:31] LABS: Chol HDL Ratio 3; Cholesterol 149 mg/dl (0-200); HDL Cholesterol 49 mg/dl; LDL Cholesterol Calculated 68 mg/dl; Triglycerides 158 mg/dl (0-150); VLDL Cholesterol 32 mg/dl
[2019-07-11] MEDS: HEPARIN SOD 5,000 UNIT/0.5 ML VIAL SQ SCH ×2 (06:00→12:31)
[2019-07-11] MEDS: INSULIN ASPART 100 UNITS/ML 3 ML PEN SC SCH ×2 (08:25→12:30)
[2019-07-11] MEDS ORDERED: PANTOprazole 40 MG TAB PO SCH (09:00)
[2019-07-11] MEDS ORDERED: lisinopriL 20 MG TAB PO SCH (09:00)
[2019-07-11] MEDS ORDERED: hydroCHLOROthiazide 25 MG TAB PO SCH (09:00)
[2019-07-11] MEDS ORDERED: FEXOFENADINE HCL 180 MG TAB PO SCH (09:00)
[2019-07-11] MEDS ORDERED: MONTELUKAST SODIUM 10 MG TABLET PO SCH ×2 (09:00→21:00)
[2019-07-11] MEDS ORDERED: ASPIRIN 81 MG ECTAB PO SCH (09:00)
[2019-07-11] MEDS ORDERED: Nursing to Pharmacy Communication ONE (09:06)
--- NOTE | 2019-07-11 14:40 | Electrocardiogram Report ---
Test Reason : Blood Pressure : / mmHG Vent. Rate : 089 BPM Atrial Rate : 089 BPM P-R Int : 134 ms QRS Dur : 078 ms QT Int : 352 ms P-R-T Axes : 073 039 043 degrees QTc Int : 428 ms Normal sinus rhythm Possible Left atrial enlargement Borderline ECG When compared with ECG of 28-DEC-2016 15:52, No significant change was found Confirmed by Michele Meade ([id number]) on 07/11/2019 2:40:34 PM Referred By: REFERRED SELF Confirmed By:Michele Meade
--- NOTE | 2019-07-11 15:24 | Discharge Summary ---
Date of Service July 11, 2019 Admission HPI Per Admitting Provider This is a 49-year-old female who has significant past medical history of HTN, diabetes mellitus, asthma, GERD, allergic rhinitis, morbid obesity, NIRMALA on 2 L at bedtime who presents to ED secondary to left-sided chest pain times several hours. She elicits that initially she developed substernal chest pain around 8 PM last evening which feels similar to her GERD. Symptoms resolved on their own. She was abruptly woken at approximately 3-3 30 this morning with left- sided upper back pain that radiated around to left axilla and left chest wall. Pain was constant, made worse with movement and deep inspiration but improved whenever she rolled on her side. She was able to fall back asleep when she woke up at approximately 5 AM with again severe pain. She got up and slept in recliner and was unable to get comfortable and therefore called EMS. She has never had any pain similar to this in the past. She describes pain as constant, "squeezing like a muscle spasm," 5/10, made worse with position and deep inspir ation, improved with rest and shallow inspiration. In route she got ASA 324 and nitro x2 with no relief. She complained of associated shortness of breath and wheezing. She did use her nebulizer x2 yesterday secondary to wheezing. She complains of rhinorrhea, postnasal drip, cough for seen in the morning to clear postnasal drip then this resolves. She denies any recent URI or L RTI, fever, chills, sweats, lightheadedness, dizziness, syncope, palpitations, hemoptysis, nausea, vomiting, abdominal pain, change in bowel or urinary habits. She denies any recent travel, but has been more sedentary secondary to current pandemic. She denies any exposure to known COVID-19 contacts and has been taking proper precautions. Appetite has been normal. In ED patient remained hemodynamically stable. Her lab work was generally unremarkable including CBC, CMP, troponin, lipase. D-dimer was ordered which was also negative. Chest x-ray revealed 7 mm TONIO apical nodule for summation. She received nitro 0.4 mg x 1 without relief. Admission Exam Per Admitting Provider Constitutional: WD/WN, F, morbidly obese, vitals as above, NAD, sitting up in bed, pleasant, dyspneic with conversation Head: Normocephalic, Atraumatic Eyes: PERRL, conjunctivae normal, anicteric sclerae ENMT: external ear and nose normal, oropharynx normal Neck: trachea midline, no thyromegaly normal visual inspection Respiratory: normal respiratory effort, + pain with deep inspiration, lungs clear to auscultation, no wheeze, rales, rhonchi. Normal insp/exp effort, no accessory muscle use Cardiovascular: RRR, no murmur, no edema Vessels: no JVD or carotid bruit Chest: normal inspection of chest Abdomen: normal bowel sounds, soft, nontender, no hepatosplenomegaly Musculoskeletal: no cyanosis or clubbing, extremities motor strength 5/5 + pain to palpation L paraspinal musculature in cervical region Skin: no rashes, warm and dry normal turgor Neurologic: PERRL, EOMI, accommodation nl, no face palsy, no dysarthria CN's II-XI intact bilaterally and moves all extremities Psychiatric: A+Ox3, euthymic affect Lymphatic: no cervical or axillary lymphadenopathy : deferred Principal Diagnosis Chest pain due to costochondritis Discharge Exam Constitutional: morbidly obese female sitting up in bed in NAD, comfortable, breathing on room air HEENT: Normocephalic, Atraumatic, PERRL, EOMI, conjunctivae normal, anicteric sclerae, external ear and nose normal, oropharynx normal Neck: supple, no JVD Pulmonary: normal respiratory effort, + pain with deep inspiration, lungs clear to auscultation, no wheeze, rales, rhonchi. Normal insp/exp effort, no accessory muscle use Cardiovascular: RRR, no murmur, no edema Vessels: no JVD or carotid bruit Chest: normal inspection of chest, tender to palpation (pain reproducible) Abdomen: normal bowel sounds, soft, nontender, nondistended Musculoskeletal: no cyanosis or clubbing, extremities motor strength 5/5 + pain to palpation L ribcage Skin: no rashes, warm and dry normal turgor Neurologic: PERRL, EOMI, accommodation nl, no face palsy, no dysarthria CN's II-XI intact bilaterally and moves all extremities Psychiatric: A+Ox3, euthymic affect Discharge Data Allergies Allergy/AdvReac Type Severity Reaction Status Date / Time bee venom protein (honey bee) Allergy Unknown Verified 04/07/20 08:34 Consultations 07/10/19 09:49 ED Decision to Admit Stat Echocardiogram 07/11/2019 Normal LV chamber size and wall thickness. Normal LV systolic function, EF 60 to 65%. No segmental left ventricular wall motion abnormalities are noted. Normal diastolic function. No significant valvular pathology. CXR 07/10/2019 FINDINGS: The cardiac and mediastinal contours are normal. There is no evidence of focal pulmonary consolidation. There is no evidence of failure. No pleural effusions are visualized.[No pneumothorax is visualized. There is a 7 mm left apical nodule versus summation. IMPRESSION: 1. 7 mm left apical nodule versus summation 2. No evidence of failure. No evidence of focal pulmonary consolidation Hospital Course (1) Chest pain: Secondary to costochondritis This is a 49-year-old female who has significant past medical history of HTN, diabetes mellitus, asthma, GERD, allergic rhinitis, morbid obesity, NIRMALA on 2 L at bedtime who presented to ED secondary to left-sided chest pain x several hours. Patient confirmed that she has been cleaning and has been more active in the house recently. Pt with risk factors including HTN, T2DM, NIRMALA, Obesity, +FH in Father who had CAD with stents in his 40s/50s. Had normal nuc stress test 08/2018 CP is reproducible and worse with inspiration Sx likely attributed to costochondritis, MSK, pleurisy but given above must rule out ACS Currently denies any chest pain, however pain is reproducible on palpation Her lab work generally unremarkable including CBC, CMP, troponin, lipase. D- dimer was ordered which was also negative. Troponin x4 - negative Nonischemic changes on EKG, and Echo unremarkable. Chest x-ray revealed 7 mm TONIO apical nodule for summation. She received nitro 0.4 mg x 1 without relief. Plan to discharge on Tylenol, and NSAIDs. Recommended to follow-up with primary care provider and/or abstractor if pain not improved. Currently patient denies any chest pain and only has pain on palpation. If pain would be recurrent, or worsening, recommend further work-up, may need stress test, etc. (2) T2DM (type 2 diabetes mellitus): last a1c 6.6 on 05/11/19 hold metformin insulin sliding scale (3) Hypertension: controlled on HCTZ and lisinopril (4) Abnormal CXR: CXR reveals 7mm TONIO apical nodule vs summation last Chest CT reviewed in 09/2015 revealed a 5mm left lower lobe nodule would recommend routine CT as outpt (5) GERD (gastroesophageal reflux disease): continue PPI/H2 sajan sx do not sound GI in origin does follow with [facility] recently had NM GES negative; had HIDA in 2019 which was WNL as well (6) NIRMALA (obstructive sleep apnea): continue 2L at HS (7) Asthma: no acute exacerbation continue prn albuterol she receives SQ inj with xolair q 2 weeks (8) Morbidly obese: encourage lifestyle modifications BMI 55.7 Total Time Total Time Spent Total Time Spent (In Minutes): 40 Total Time Includes: Examination of the Patient, Discharge Planning, Medication Reconciliation and Communication With Other Providers Discharge Plan Discharge Items Patient Disposition: Home - Self-Care Reason For Visit: CHEST PAIN Discharge Diagnosis: Chest pain due to costochondritis Condition on Discharge: Good Activity: As commented below Non-emergency contact: Primary Care Provider and Russet Repairer Call non-emergency contact if: you have any medication questions and your symptoms worsen Follow-up/Referrals: Chiara Medrano, [Primary Care Provider] - 07/16/19 11:20 am (07/16/2019 11:20 AM Danny Lujan MD [facility] ) Diet: Carb Consistent or DM2 and Heart Healthy Addtl Attending Provider Instructions: Recommend to follow-up with your primary care doctor, or abstractor in 1 to 2 weeks. If your pain does not resolve you may need further evaluation, such as stress test. You did not have a heart attack. Your echocardiogram was normal. For your current pain, recommend Tylenol 1000 mg 3 times a day, max dose is 3000 mg a day, and Aleve/ibuprofen 600 mg every 4 hours. This should help within the next couple of days. Also recommend rest, given your recent increased activity/cleaning and such. Pending Studies at Discharge: No Stand-Alone Forms: [employer], Smoking Cessation Medications and DC Order Prescriptions: Continued lisinopril 20 mg tablet 20 mg PO DAILY RF: 0 omeprazole 40 mg capsule,delayed release(DR/EC) 40 mg PO DAILY RF: 0 metformin 500 mg tablet extended release 24 hr 500 mg PO BID RF: 0 Xolair 150 mg recon soln 150 mg SUBCUT UD RF: 0 hydrochlorothiazide 12.5 mg capsule 12.5 mg PO DAILY RF: 0 montelukast 10 mg Tablet 10 mg PO HS RF: 0 albuterol sulfate [Proventil HFA] 90 mcg/actuation Hfa Aerosol Inhaler 1 inh INHALATION QID PRN (Reason: Shortness Of Breath) RF: 0 famotidine [Pepcid] 20 mg Tablet 20 mg PO HS RF: 0 albuterol sulfate 2.5 mg /3 mL (0.083 %) Solution For Nebulization 2.5 mg INHALATION QID PRN (Reason: SOB/wheezing) RF: 0 fexofenadine 180 mg Tablet 180 mg PO DAILY RF: 0 aspirin 81 mg Tablet,Chewable 81 mg PO DAILY RF: 0 Discharge Orders: Discharge Order (Routine); Ordered 07/11/19 Ordered By: Nicolas Shepard Admission Data Admit Date/Time: 07/10/19 10:08 Attending Provider: Nicolas Shepard Admit Provider: Tabatha Mitchell Primary Care Provider: Chiara Medrano Other Providers: Tabatha Mitchell Other Interventions: Discharge Summary Assessment (RN) Last Done: 07/11/19 16:05 DC Date/Time DO NOT enter until pt leaves facility: 07/11/19 16:59
== END 2019-07-11 16:59 | disposition home or self-care (01) ==
LOC: 2W 07:58 → ED 07:58 → SUATTDRO 10:08 → 2W 10:29